=== PATIENT | male | born 1970 | race Caucasian/White ===

== ENCOUNTER 2016-06-17 08:10 | Emergency (ER) | payer OTHER ==
[~2016-06-17] VITALS: Ht 180.3 cm; Wt 85.3 kg
[~2016-06-17 08:10] MED LIST: CIPR500T89 PO; FLAG500T PO; NO HOME MEDICATIONS; PERCOCET OR
[2016-06-17] MEDS ORDERED: ONDANSETRON 4MG/2ML VIAL (J2405) IV ONE (08:30)
[2016-06-17] MEDS ORDERED: KETOROLAC 30 MG/ML VIAL (J1885) IV ONE (08:30)
[2016-06-17] MEDS ORDERED: NS 1,000 ML IV ONE (08:30)
--- NOTE | 2016-06-17 09:05 | REP ---
CT ABDOMEN AND PELVIS WITHOUT CONTRAST: 06/17/2016. Comparison: 12/21/2011. Clinical history: Renal colic. Left-sided abdominal pain. Prior history of stone disease. Findings: Our renal stone protocol was utilized. CT abdomen: The lung bases are clear. Heart is not enlarged. There is no pericardial thickening or effusion. The liver, spleen, gallbladder, pancreas, adrenal glands and stomach were unremarkable. There is no hiatal hernia. The aorta has minimal calcification distally without aneurysm No periaortic or retroperitoneal pathologic sized lymphadenopathy. The right kidney shows no stone, hydronephrosis, mass or perinephric edema. The left kidney shows a lower pole calcification about 2 mm in a pyramid. There is very minimal left hydroureter. There is a 1-2 mm calcification at the left ureteral orifice in the empty bladder. It could still be in the bladder wall. No other bladder finding. Bone windows were unremarkable. There are marginal osteophytes anteriorly. The ribs are intact. CT pelvis. The sacrum, SI joints, pelvis and hips are without acute finding. Mild distal ureteral dilatation on the left with a 1 x 2 mm stone in the bladder wall or just in the bladder. Bladder is empty and therefore difficult to evaluate. Multiple pelvic phleboliths are seen. The colon and small bowel loops in the abdomen and pelvis were unremarkable. There are no inflammatory changes about the cecum. No ventral or inguinal hernia nor pathologic sized inguinal adenopathy. Impression: 1. There is a 2 mm stone in a pyramid or lower pole calyx on the left without significant hydronephrosis. A mild hydroureter on the left without a stone in that ureter but with a 1 x 2 mm calcification within the bladder or just in the bladder wall on the left side in that empty bladder. No other significant findings. Signed by Presley Grubbs MD 06/17/2016 06:27 P
[2016-06-17 09:10] LABS: ALBUMIN 4.1 GM/DL (3.2-5.2); ALBUMIN/GLOBULIN RATIO 1.21 (1.00-1.93); ALKALINE PHOSPHATASE 63 U/L (45-117); ALT/SGPT 26 U/L (12-78); AMYLASE 40 U/L (25-115); ANION GAP 8 MEQ/L (8-16); AST/SGOT 14 U/L (15-37); BILIRUBIN,DIRECT 0.1 MG/DL (0.0-0.2); BILIRUBIN,TOTAL 0.4 MG/DL (0.2-1.0); BLOOD UREA NITROGEN 17 MG/DL (7-18); CALCIUM LEVEL 8.9 MG/DL (8.5-10.1); CARBON DIOXIDE LEVEL 28 MEQ/L (21-32); CHLORIDE LEVEL 106 MEQ/L (98-107); CREATININE FOR GFR 1.24 MG/DL (0.70-1.30); GLOMERULAR FILTRATION RATE > 60.0 (>60); GLUCOSE, FASTING 120 MG/DL (70-105); POTASSIUM SERUM 3.9 MEQ/L (3.5-5.1); SODIUM LEVEL 142 MEQ/L (136-145); TOTAL PROTEIN 7.5 GM/DL (6.4-8.2)
[2016-06-17 09:17] LABS: BASO % 0.2 % (0.0-1.0); EOS % 0.5 % (0.0-3.0); LARGE UNSTAINED CELL # 0.1 K/mm3 (0.0-0.4); LARGE UNSTAINED CELL % 1.8 % (0.0-4.0); LYMPH # 1.2 K/mm3 (1.5-4.5); LYMPH % 18.2 % (24.0-44.0); MEAN CORPUSCULAR HEMOGLOBIN 31.3 pg (27.0-33.0); MEAN CORPUSCULAR HGB CONC 33.2 g/dl (32.0-36.5); MEAN CORPUSCULAR VOLUME 94.2 fl (80.0-96.0); MONO # 0.2 K/mm3 (0.0-0.8); MONO % 3.6 % (0.0-5.0); NEUTROPHILS % 75.7 % (36.0-66.0); PLATELET COUNT, AUTOMATED 205 k/mm3 (150-450); RED CELL DISTRIBUTION WIDTH 12.1 % (11.5-14.5); WHITE BLOOD COUNT 6.6 K/mm3 (4.0-10.0)
[2016-06-17] MEDS ORDERED: HYDR-3713 PO (09:36)
[2016-06-17] MEDS ORDERED: NAPR500T PO (09:36)
[2016-06-17 09:50] VITALS: BP 148/86
== END 2016-06-17 10:02 | disposition home or self-care (01) ==
LOC: M ED 09:39
DX: N20.2 Calculus of kidney with calculus of ureter (principal); N21.0 Calculus in bladder
CPT/HCPCS: 74176; 80048; 80076; 81001; 82150; 83690; 85025; 96361; 96374; 96375; 99283; J1885; J2405

== ENCOUNTER 2019-06-15 18:53 | Emergency (ER) | payer OTHER ==
[~2019-06-15] VITALS: Ht 185.4 cm; Wt 84.2 kg
[~2019-06-15 18:53] MED LIST changes: +HYDR-3713 PO; +NAPR-837 PO; +OXYC1TAB23 OR; -PERCOCET OR
[2019-06-15 20:16] LABS: INFLUENZA A AMPLIFICATION NEGATIVE (NEGATIVE); INFLUENZA B AMPLIFICATION NEGATIVE (NEGATIVE)
[2019-06-15 20:49] LABS: BASO % 0.3 % (0.0-1.0); HEMATOCRIT 48.1 % (42.0-52.0); LYMPH % 14.6 % (24.0-44.0); MEAN CORPUSCULAR HEMOGLOBIN 31.1 pg (27.0-33.0); MEAN CORPUSCULAR HGB CONC 33.3 g/dl (32.0-36.5); MEAN CORPUSCULAR VOLUME 93.6 fl (80.0-96.0); MONO # 0.7 10^3/uL (0.0-0.8); MONO % 10.7 % (0.0-5.0); NEUTROPHILS # 4.9 10^3/uL (1.5-8.5); NEUTROPHILS % 74.1 % (36.0-66.0); PLATELET COUNT, AUTOMATED 154 10^3/uL (150-450); RED BLOOD COUNT 5.14 10^6/uL (4.30-6.10); WHITE BLOOD COUNT 6.6 10^3/uL (4.0-10.0)
[2019-06-15 20:59] LABS: APPEARANCE, URINE CLEAR (CLEAR); COLOR, URINE YELLOW (YELLOW)
[2019-06-15 21:00] LABS: BILIRUBIN, URINE AUTO NEGATIVE (NEGATIVE); GLUCOSE, URINE (UA) AUTO NEGATIVE (NEGATIVE); KETONE, URINE AUTO 1+ mg/dL (NEGATIVE); LEUKOCYTE ESTERASE, URINE AUTO NEGATIVE (NEGATIVE); NITRITE, URINE AUTO NEGATIVE (NEGATIVE); PROTEIN, URINE AUTO NEGATIVE (NEGATIVE); SPECIFIC GRAVITY URINE AUTO 1.01 (1.002-1.035); UROBILINOGEN, URINE AUTO 0.2 mg/dL (0.0-2.0)
[2019-06-15] MEDS ORDERED: ACETAMINOPHEN 325 MG TAB PO ONE (21:00)
[2019-06-15] MEDS ORDERED: ALBUTEROL SULFATE 2.5 MG/0.5 ML INH NEB SOLN NEB ONE (21:00)
[2019-06-15] MEDS ORDERED: BENZONATATE 100 MG CAP PO ONE (21:00)
[2019-06-15 21:01] LABS: BACTERIA, URINE AUTO NEG (NEGATIVE); BLOOD, URINE BLOOD NEGATIVE (NEGATIVE); RBC, URINE AUTO 1 /HPF (0-3); SQUAMOUS EPITHELIAL CELL UR AU 0 /HPF (0-6); WBC, URINE AUTO 0 /HPF (0-3)
[2019-06-15 21:08] LABS: MONO SCRN NEGATIVE (NEGATIVE)
[2019-06-15 21:11] LABS: ALBUMIN 4.2 GM/DL (3.2-5.2); ALT/SGPT 38 U/L (12-78); BILIRUBIN,DIRECT 0.1 MG/DL (0.0-0.2); BILIRUBIN,TOTAL 0.5 MG/DL (0.2-1.0); BLOOD UREA NITROGEN 15 MG/DL (7-18); CALCIUM LEVEL 9.4 MG/DL (8.5-10.1); CARBON DIOXIDE LEVEL 29 MEQ/L (21-32); CHLORIDE LEVEL 100 MEQ/L (98-107); CREATININE FOR GFR 1.17 MG/DL (0.70-1.30); GLOMERULAR FILTRATION RATE > 60.0 (>60); GLUCOSE, FASTING 101 MG/DL (70-100); POTASSIUM SERUM 4.1 MEQ/L (3.5-5.1); SODIUM LEVEL 138 MEQ/L (136-145); TOTAL PROTEIN 7.7 GM/DL (6.4-8.2)
--- NOTE | 2019-06-15 23:59 | REPVR ---
PROCEDURE INFORMATION: Exam: CT Chest Without Contrast Exam date and time: 06/15/2019 11:01 PM Age: 48 years old Clinical indication: Cough and fever; Additional info: ? Rll infiltrate, neg resp panel, fever, cough TECHNIQUE: Imaging protocol: Computed tomography of the chest without contrast. 3D rendering: MIP and/or 3D reconstructed images were created by the technologist. Radiation optimization: All CT scans at this facility use at least one of these dose optimization techniques: automated exposure control; mA and/or kV adjustment per patient size (includes targeted exams where dose is matched to clinical indication); or iterative reconstruction. COMPARISON: CR Chest, 2 view PA, Lat 06/15/2019 8:49 PM FINDINGS: Airway: Visualized airway is unremarkable. Lungs: No consolidation. No masses. Minimal subpleural ground-glass opacities in the anterior basal right lower lobe. Pleural space: Unremarkable. No pneumothorax. No pleural effusion. Heart: Unremarkable. No cardiomegaly. No pericardial effusion. Aorta: Unremarkable. No aortic aneurysm. Lymph nodes: Unremarkable. No enlarged lymph nodes. Kidneys and ureters: Subtle hypodense lesion in the midpole of the left kidney measuring 9 mm. Bones/joints: Unremarkable. No acute fracture. Soft tissues: Unremarkable. IMPRESSION: 1. Minimal subpleural ground-glass opacities in the anterior basal right lower lobe which is nonspecific. Early pneumonia cannot be excluded. 2. Subtle hypodense lesion in the midpole of the left kidney. Suspect benign-appearing cyst. No follow-up is necessary. Electronically signed by: Abhinav Garcia On 06/15/2019 23:59:05 PM
[2019-06-16] MEDS ORDERED: PROAAER10 INH (01:18)
[2019-06-16] MEDS ORDERED: TESS100C PO (01:18)
[2019-06-16] MEDS ORDERED: ONDA4TAB6 PO (01:20)
[2019-06-16 02:23] VITALS: BP 111/67
--- NOTE | 2019-06-16 03:11 | REP ---
Clinical: Flu-like symptoms . Comparison: None . Technique: PA and lateral. Findings: The mediastinum and cardiac silhouette are normal. The lung hernandez are clear and without acute consolidation, effusion, or pneumothorax. The skeletal structures are intact and normal. Impression: 1. No acute cardiopulmonary process. Electronically Signed by Chester Addison MD 06/16/2019 03:03 A
--- NOTE | 2019-06-18 18:52 | ED PDOC ---
Post-Departure Follow-Up ct chest faxed to zhane rodríguez for follow up. Ivana Simpson MD Jun 18, 2019 18:51
== END 2019-06-16 02:26 | disposition home or self-care (01) ==
LOC: M ED 18:53
DX: R50.9 Fever, unspecified (principal); R05 Cough; R06.02 Shortness of breath; M79.10 Myalgia, unspecified site; Z87.891 Personal history of nicotine dependence; K57.92 Diverticulitis of intestine, part unspecified, without perforation or abscess without bleeding
CPT/HCPCS: 71046; 71250; 80048; 80076; 81001; 85025; 86308; 87486; 87502; 87581; 87633; 87798; 87880; 99284; U0002

== ENCOUNTER → 2020-02-21 | Outpatient (CLI) | payer SELFPAY ==
[~2020-02-21] MED LIST changes: +ONDA4TAB6 PO; +PROAAER10 INH; +TESS100C PO
== END ==
LOC: M LABSMTC 13:10
PROVIDERS: ATTEND Pediatrics
DX: Z20.828 Contact with and (suspected) exposure to other viral communicable diseases (principal)

== ENCOUNTER 2020-05-27 11:29 | Emergency (ER) | payer OTHER, SELFPAY ==
[~2020-05-27] VITALS: Ht 180.3 cm; Wt 84.1 kg
[2020-05-27 11:30] VITALS: BP 128/69
--- OUTSIDE RECORDS SUMMARY | 2020-05-27 11:37 | CCD ---
Author Author [facility] Organization [facility] Address Unknown Phone Unavailable Support Name Relationship Address Phone [place] NATIONAL GUARD Next Of Kin [address] [place] [address] [place]OW[place] Next Of Kin [address] [place] [address] HIPOLITO MELVIN Next Of Kin [address] [place] [address] Re-disclosure Warning The records that you are about to access may contain information from federally-assisted alcohol or drug abuse programs. If such information is present, then the following federally mandated warning applies: This information has been disclosed to you from records protected by federal confidentiality rules (42 CFR part 2). The federal rules prohibit you from making any further disclosure of this information unless further disclosure is expressly permitted by the written consent of the person to whom it pertains or as otherwise permitted by 42 CFR part 2. A general authorization for the release of medical or other information is NOT sufficient for this purpose. The Federal rules restrict any use of the information to criminally investigate or prosecute any alcohol or drug abuse patient.The records that you are about to access may contain highly sensitive health information, the redisclosure of which is protected by Article 27-F of the [facility] Public Health law. If you continue you may have access to information: Regarding HIV / AIDS; Provided by facilities licensed or operated by the [facility] Office of Mental Health; or Provided by the [facility] Office for People With Developmental Disabilities. If such information is present, then the following [facility] mandated warning applies: This information has been disclosed to you from confidential records which are protected by state law. State law prohibits you from making any further disclosure of this information without the specific written consent of the person to whom it pertains, or as otherwise permitted by law. Any unauthorized further disclosure in violation of state law may result in a fine or chcf sentence or both. A general authorization for the release of medical or other information is NOT sufficient authorization for further disc losure. Insurance Providers Payer name Policy type / Coverage type Policy ID Covered libertarian ID Covered libertarian's relationship to jane Policy Jane Plan Information SELF PAY ONLY [id number] SP [id number] [employer] ACT[employer] DUTY [id number] SP [id number] [employer] DUTY [id number] SP [id number] ACTIVE DUTY [id number] SP [id number] U [id number] Self [id number] 600 SELF PAY UNAVAILABLE SP UNAVAILA BLE EXCELLUS BCBS P [id number] S LWE [id number] BC[employer] [place] 010/510 [id number] SP [id number] 1 Results ID Date Data Source [id number] 02/21/2020 12:00:00 AM EST [facility] Name Value Range Interpretation Code Description Data Leta rce(s) Supporting Document(s) 2018-nCoV RNA XXX EPHRAIM+probe-Imp [facility] This lab was ordered by [facility] and reported by [employer]. ID Date Data Source [id number] 06/15/2019 07:26:00 PM EDT [facility] Name Value Range Interpretation Code Description Data Leta rce(s) Supporting Document(s) 2018-NCOV RNA PNL XXX EPHRAIM+PROBE [facility] This lab was ordered by [facility] and reported by [facility]. Procedure
--- NOTE | 2020-05-27 12:29 | REP ---
INDICATION: TRAUMA/SWELLING COMPARISON: None. TECHNIQUE: Four views left ankle. FINDINGS: There is a nondisplaced fracture of the distal fibula. The ankle mortise is anatomic. There is moderate lateral soft tissue swelling. IMPRESSION: Nondisplaced fracture distal fibula. <Electronically signed by John Louise > 05/27/20 [id number]
--- OUTSIDE RECORDS SUMMARY | 2020-05-27 15:17 | CCD ---
Author Author [facility] Organization [facility] Address Unknown Phone Unavailable Support Name Relationship Address Phone [place] NATIONAL GUARD Next Of Kin [address] [place] [address] [place]OW[place] Next Of Kin [address] [place] [address] HIPOLITO MELVIN Next Of Kin [address] [place] [address] Re-disclosure Warning The records that you are [...] is protected by Article 27-F of the [facility] Public Health law. If you continue you may have access to information: Regarding HIV / AIDS; Provided by facilities licensed or operated by the [facility] Office of Mental Health; or Provided by the [facility] Office for People With Developmental Disabilities. If such information is present, then the following [facility] mandated warning applies: This information has been [...] law may result in a fine or correction sentence or both. A general authorization for the release of medical or other information is NOT sufficient authorization for further disc losure. Insurance Providers Payer name Policy type / Coverage type Policy ID Covered alliance party ID Covered alliance party's relationship to jane Policy Jane Plan Information [employer] ACT[employer] DUTY [id number] SP [id number] SELF PAY ONLY [id number] SP [id number] [employer] DUTY [id number] SP [id number] ACTIVE DUTY [id number] SP [id number] U [id number] Self [id number] 600 SELF PAY UNAVAILABLE SP UNAVAILA BLE EXCELLUS BCBS P [id number] S LWE [id number] [employer] OF [place] 010/510 [id number] SP [id number] 1 Results ID Date Data Source [id number] 02/21/2020 12:00:00 AM EST [facility] Name Value Range Interpretation Code Description Data Leta rce(s) Supporting Document(s) 2018-nCoV RNA XXX EPHRAIM+probe-Imp [facility] This lab was ordered by [facility] and reported by [employer]. ID Date Data Source [id number] 06/15/2019 07:26:00 PM EDT [facility] Name Value Range Interpretation Code Description Data Leta rce(s) Supporting Document(s) 2018-NCOV RNA PNL XXX EPHRAIM+PROBE [facility] This lab was ordered by [facility] and reported by [facility]. Procedure
== END 2020-05-27 15:43 | disposition home or self-care (01) ==
LOC: M ED 11:29
DX: S82.832A Other fracture of upper and lower end of left fibula, initial encounter for closed fracture (principal); X50.1XXA Overexertion from prolonged static or awkward postures, initial encounter; Y92.89 Other specified places as the place of occurrence of the external cause; Y93.9 Activity, unspecified; Y99.0 Civilian activity done for income or pay

== ENCOUNTER 2021-01-22 19:08 | Inpatient (IN) | payer OTHER ==
[~2021-01-22] VITALS: Ht 182.9 cm; Wt 88.3 kg
--- OUTSIDE RECORDS SUMMARY | 2021-01-22 19:16 | CCD ---
Author Author [facility] Organization [facility] Address Unknown Phone Unavailable Care Team Providers Care Bench Shear Operator Name Role Phone NO, PCP Unavailable Unavailable Joleen IBARRA Unavailable Unavailable Re-disclosure Warning The records that you are [...] is protected by Article 27-F of the [facility] Public Health law. If you continue you may have access to information: Regarding HIV / AIDS; Provided by facilities licensed or operated by the [facility] Office of Mental Health; or Provided by the [facility] Office for People With Developmental Disabilities. If such information is present, then the following [facility] mandated warning applies: This information has been [...] law may result in a fine or fci sentence or both. A general authorization for the release of medical or other information is NOT sufficient authorization for further disc losure. Allergies and Adverse Reactions Type Description Substance Reaction Status Data Source(s ) No Known Drug Allergies No Known Drug Allergies [facility] No Known Environmental Allergies No Known Environmental Al lergies [facility] No Known Food Allergies No Known Food Allergies [facility] Encounters Encounter Providers Location Date Indications Data Source(s ) Outpatient Attender: LEXY Stewartltant: PCP NO 06/11/2020 07:06:43 AM EST - 06/12/2020 11:23:00 AM [facility] Patient discharged. Outpatient Attender: LEXY Lopezant: PCP NO 06/10/2020 01:18:49 PM EST - 06/11/2020 01:47:00 PM EST [facility] Patient discharged. Medications No Information Insurance Providers Payer name Policy type / Coverage type Policy ID Covered democrat ID Covered democrat's relationship to jane Policy Jane Plan Information U [id number] Self [id number] SELF PAY ONLY [id number] SP [id number] [facility] ACTIVE DUTY [id number] SP [id number] [facility] ACTIVE DUTY [id number] SP [id number] ACTIVE DUTY [id number] SP [id number] [facility] - O/P [id number] 18 [id number] SELF PAY UNAVAILABLE SP UNAVAILA BLE EXCELLUS BCBS P [id number] S LWE [id number] BCBS [facility] 010/510 [id number] SP [id number] 1 Problems, Conditions, and Diagnoses Code Display Name Description Problem Type Effective Dates Data Source(s) X69379 Nicotine dependence, chewing tobacco, un complicated Nicotine dependence, chewing tobacco, uncomplicated Diagnosis 06/12/2020 06:15:00 AM [facility] Y998 Other external cause status Other external cause statu s Diagnosis 06/12/2020 06:15:00 AM [facility] Y9389 Activity, other specified Activity, other specified Di agnosis 06/12/2020 06:15:00 AM [facility] Y9289 Other specified places as the place of o ccurrence of the external cause Other specified places as the place of occurrence of the external cause Diagnosis 06/12/2020 06:15:00 AM [facility] [id number] Exposure to other specified factors, ini tial encounter Exposure to other specified factors, initial encounter Diagnosis 06/12/2020 06:15:00 AM [facility] [id number] Contusion of left ankle, initial encount er Contusion of left ankle, initial encounter Diagnosis 06/12/2020 06:15:00 AM [facility] [id number] Other fracture of upper and lower end of left fibula, initial encounter for closed fracture Other fracture of upper and lower end of left fibula, initial encounter for closed fracture Diagnosis 06/12/2020 06:15:00 AM [facility] [id number] Encounter for other preprocedural examin ation Encounter for other preprocedural examination Diagnosis 06/11/2020 01:00:00 PM [facility] Surgeries/Procedures No Information Results ID Date Data Source [id number] 06/07/2020 10:32:00 AM EST [facility] Name Value Range Interpretation Code Description Data Leta rce(s) Supporting Document(s) SARS coronavirus 2 RNA Not Detected [facility] This lab was ordered by [facility] and reported by [facility]. ID Date Data Source [id number] 02/21/2020 12:00:00 AM EST [facility] Name Value Range Interpretation Code Description Data Leta rce(s) Supporting Document(s) 2019-nCoV RNA XXX EPHRAIM+probe-Imp [facility] This lab was ordered by [facility] and reported by [employer] Procedure Social History No Information Vital Signs ID Date Data Source [id number] 06/18/2020 07:12:12 AM EDT [facility] Name Value Range Interpretation Code Description Data Source(s) WEIGHT RECORDED 185.00 pounds 185.00 pounds [facility] Height 71 Inches 071 Inches [facility]
[2021-01-22 20:39] LABS: BASO % 0.1 % (0.0-1.0); EOS % 0.1 % (0.0-3.0); HEMATOCRIT 47.6 % (42.0-52.0); HEMOGLOBIN 15.8 g/dl (13.5-17.5); LYMPH # 1.6 10^3/uL (1.5-5.0); LYMPH % 11.7 % (24.0-44.0); MEAN CORPUSCULAR HEMOGLOBIN 31.7 pg (27.0-33.0); MEAN CORPUSCULAR HGB CONC 33.2 g/dl (32.0-36.5); MEAN CORPUSCULAR VOLUME 95.4 fl (80.0-96.0); MONO # 1.1 10^3/uL (0.0-0.8); MONO % 8.2 % (2.0-8.0); NEUTROPHILS # 10.7 10^3/uL (1.5-8.5); NEUTROPHILS % 79.6 % (36.0-66.0); PLATELET COUNT, AUTOMATED 192 10^3/uL (150-450); RED BLOOD COUNT 4.99 10^6/uL (4.30-6.10); WHITE BLOOD COUNT 13.5 10^3/uL (4.0-10.0)
[2021-01-22 21:09] LABS: ALBUMIN 3.8 GM/DL (3.2-5.2); ALT/SGPT 24 U/L (12-78); BILIRUBIN,DIRECT 0.2 MG/DL (0.0-0.2); BILIRUBIN,TOTAL 0.7 MG/DL (0.2-1.0); BLOOD UREA NITROGEN 18 MG/DL (7-18); CALCIUM LEVEL 9.2 MG/DL (8.5-10.1); CARBON DIOXIDE LEVEL 32 MEQ/L (21-32); CHLORIDE LEVEL 103 MEQ/L (98-107); CREATININE FOR GFR 1.26 MG/DL (0.70-1.30); GLOMERULAR FILTRATION RATE > 60.0 (>60); GLUCOSE, FASTING 102 MG/DL (70-100); LIPASE 107 U/L (73-393); POTASSIUM SERUM 4.1 MEQ/L (3.5-5.1); SODIUM LEVEL 140 MEQ/L (136-145); TOTAL PROTEIN 7.3 GM/DL (6.4-8.2)
--- OUTSIDE RECORDS SUMMARY | 2021-01-22 22:55 | CCD ---
Author Author [facility] Organization [facility] Address Unknown Phone Unavailable Care Team Providers Care Occupational Health Coordinator Name Role Phone NO, PCP Unavailable Unavailable [...] is protected by Article 27-F of the [facility] Public Health law. If you continue you may have access to information: Regarding HIV / AIDS; Provided by facilities licensed or operated by the [facility] Office of Mental Health; or Provided by the [facility] Office for People With Developmental Disabilities. If such information is present, then the following [facility] mandated warning applies: This information [...] Known Drug Allergies No Known Drug Allergies [facility] No Known Environmental Allergies No Known Environmental Al lergies [facility] No Known Food Allergies No Known Food Allergies [facility] Encounters Encounter Providers Location Date Indications Data Source(s ) Outpatient Attender: LEXY Stewartltant: PCP NO 06/11/2020 07:06:43 AM EST - 06/12/2020 11:23:00 AM [facility] Patient discharged. Outpatient Attender: LEXY Lopezant: PCP NO 06/10/2020 01:18:49 PM EST - 06/11/2020 01:47:00 PM EST [facility] Patient discharged. Medications No Information Insurance Providers Payer name Policy type / Coverage type Policy ID Covered alliance party ID Covered alliance party's relationship to jane Policy Jane Plan Information U [id number] Self [id number] SELF PAY ONLY [id number] SP [id number] [facility] ACTIVE DUTY [id number] SP [id number] [facility] ACTIVE DUTY [id number] SP [id number] ACTIVE DUTY [id number] SP [id number] [facility] HUMANA - O/P [id number] 18 [id number] SELF PAY UNAVAILABLE SP UNAVAILA BLE EXCELLUS BCBS P [id number] S LWE [id number] BCBS [facility] 010/510 [id number] SP [id number] 1 Problems, Conditions, and Diagnoses Code Display Name Description Problem Type Effective Dates Data Source(s) G77446 Nicotine dependence, chewing tobacco, un complicated Nicotine dependence, chewing tobacco, uncomplicated Diagnosis 06/12/2020 06:15:00 AM [facility] Y998 Other external cause status Other external cause statu s Diagnosis 06/12/2020 06:15:00 AM [facility] Y9389 Activity, other specified Activity, other specified Di agnosis 06/12/2020 06:15:00 AM [facility] Y9289 Other specified places as the place of o ccurrence of the external cause Other specified places as the place of occurrence of the external cause Diagnosis 06/12/2020 06:15:00 AM [facility] [id number] Exposure to other specified factors, ini tial encounter Exposure to other specified factors, initial encounter Diagnosis 06/12/2020 06:15:00 AM [facility] [id number] Contusion of left ankle, initial encount er Contusion of left ankle, initial encounter Diagnosis 06/12/2020 06:15:00 AM [facility] [id number] Other fracture of upper and lower end of left fibula, initial encounter for closed fracture Other fracture of upper and lower end of left fibula, initial encounter for closed fracture Diagnosis 06/12/2020 06:15:00 AM [facility] [id number] Encounter for other preprocedural examin ation Encounter for other preprocedural examination Diagnosis 06/11/2020 01:00:00 PM [facility] Surgeries/Procedures No Information Results ID Date Data Source [id number] 06/07/2020 10:32:00 AM EST [facility] Name Value Range Interpretation Code Description Data Leta rce(s) Supporting Document(s) SARS coronavirus 2 RNA Not Detected [facility] This lab was ordered by [facility] and reported by [facility]. ID Date Data Source [id number] 02/21/2020 12:00:00 AM EST [facility] Name Value Range Interpretation Code Description Data Leta rce(s) Supporting Document(s) 2019-nCoV RNA XXX EPHRAIM+probe-Imp [facility] This lab was ordered by [facility] and reported by [employer] Procedure Social History No Information Vital Signs ID Date Data Source [id number] 06/18/2020 07:12:12 AM EDT [facility] Name Value Range Interpretation Code Description Data Source(s) WEIGHT RECORDED 185.00 pounds 185.00 pounds [facility] Height 71 Inches 071 Inches [facility]
[2021-01-22] MEDS ORDERED: NS 1,000 ML IV ONE (23:35)
[2021-01-22] MEDS ORDERED: ISOVUE-370 76% 100ML VIAL As Ordered ONE (23:42)
[2021-01-23 00:49] LABS: RSV AMPLIFICATION NEGATIVE (NEGATIVE)
--- NOTE | 2021-01-23 02:44 | REPVR ---
PROCEDURE INFORMATION: Exam: CT Abdomen And Pelvis With Contrast Exam date and time: 01/22/2021 12:51 AM Age: 50 years old Clinical indication: Other: Llq pain, fever, h/o diverticulitis TECHNIQUE: Imaging protocol: Computed tomography of the abdomen and pelvis with contrast. Radiation optimization: All CT scans at this facility use at least one of these dose optimization techniques: automated exposure control; mA and/or kV adjustment per patient size (includes targeted exams where dose is matched to clinical indication); or iterative reconstruction. Contrast material: ISOVUE 370; Contrast volume: 100 ml; Contrast route: INTRAVENOUS (IV); COMPARISON: CT ABD PELVIS W/O CONTRAST 06/17/2016 8:31 AM FINDINGS: LUNG BASES: Mild dependent atelectasis. VASCULAR: Visualized cardiac size is at the upper end of normal. No abdominoaortic aneurysm, dissection, or retroperitoneal hematoma. Mild appearing atherosclerosis. PERITONEAL : No free air. Small amount of slightly complex free fluid along the left pericolic gutter without attenuation of 27 Hounsfield units could be mildly hemorrhagic fluid or infected fluid. No wall enhancing abscess collection is seen. GI: No hiatal hernia. The stomach contains some fluid and gas. The stomach is not sufficiently distended to evaluate wall thickening or for complete diagnostic evaluation by this exam. Mildly distended fluid containing small bowel loops up to 2.7 cm are noted. No focal point of transition is seen. This may be secondary to peristalsis or ileus. Small nonspecific mesenteric lymph nodes are noted. Scattered fecal material and gas within portions of the colon and rectum. The appendix does not appear inflamed. There is heterogeneous focal wall thickening over an approximate 5.7 cm segment at the junction of the distal descending and sigmoid colon with surrounding mesenteric inflammatory change, fluid and fascial thickening. There is a background of diverticulosis, including an inflamed appearing diverticulum posteriorly containing bubbles of gas and surrounded by fluid, findings most consistent with acute diverticulitis. Follow-up with colonoscopy is advised, once inflammation subsides, to exclude any possibility of underlying colonic lesion. No evidence of perforation/free air or drainable abscess is seen. HEPATOBILIARY, PANCREAS, SPLEEN: Hepatic length is 17.4 cm. Attenuation of the liver is consistent with fatty infiltration. There is slight heterogeneity of hepatic parenchyma. No calcified gallstones or biliary dilation. No pancreatic inflammation. Spleen not enlarged. ADRENALS, KIDNEYS, BLADDER, RETROPERITONEAL: Adrenals within normal limits. No hydronephrosis. Symmetric renal enhancement. No perinephric stranding or fluid. No perivesical stranding. Mild prostate enlargement impressing along the base of the urinary bladder. Clinical correlation and follow-up is advised. Trace hydroceles are noted which could be correlated clinically for significance. Small nonspecific retroperitoneal lymph nodes. MUSCULOSKELETAL: Mild degenerative changes of the spine. IMPRESSION: Findings are consistent with moderately severe but uncomplicated acute diverticulitis at the junction of the distal descending and sigmoid colon. Gastrointestinal findings and recommendations discussed above. Other incidental and nonemergent findings discussed above. Electronically signed by: Jamaal Miller On 01/23/2021 02:44:33 AM
[2021-01-23] MEDS ORDERED: metroNIDAZOLE 500 MG in IV 1 EA IV ONE (03:10)
[2021-01-23] MEDS ORDERED: CIPROFLOXACIN 400 MG in IV 1 EA IV ONE (03:10)
[2021-01-23] MEDS ORDERED: ACETAMINOPHEN TAB 650MG DOSE (2X325MG) PO PRN (04:00)
[2021-01-23] MEDS ORDERED: MAALOX 30 ML SUSP *UDC PO PRN (04:00)
[2021-01-23] MEDS ORDERED: MOM 30ML SUSPENSION UDC PO PRN (04:00)
[2021-01-23] MEDS ORDERED: D31000TA2 PO (04:27)
[2021-01-23] MEDS ORDERED: HOME MED LIST COMPLETE! XX SCH (04:30)
[2021-01-23] MEDS: NS 1,000 ML IV SCH ×2 (05:11→14:30)
--- OUTSIDE RECORDS SUMMARY | 2021-01-23 05:18 | CCD ---
Author Author [facility] Organization [facility] Address Unknown Phone Unavailable Care Team Providers Care Computer Applications Instructor Name Role Phone NO, PCP Unavailable Unavailable [...] is protected by Article 27-F of the [place] Public Health law. If you continue you may have access to information: Regarding HIV / AIDS; Provided by facilities licensed or operated by the [place] Office of Mental Health; or Provided by the [place] Office for People With Developmental Disabilities. If such information is present, then the following [place] mandated warning applies: This information has been [...] law may result in a fine or long term sentence or both. A general authorization for the release of medical or other information is NOT sufficient authorization for further disc losure. Allergies and Adverse Reactions Type Description Substance Reaction Status Data Source(s ) No Known Drug Allergies No Known Drug Allergies [facility] No Known Environmental Allergies No Known Environmental Al lergies [facility] No Known Food Allergies No Known Food Allergies [facility] Encounters Encounter Providers Location Date Indications Data Source(s ) Outpatient Attender: LEXY Stewartltant: PCP NO 06/11/2020 07:06:43 AM EST - 06/12/2020 11:23:00 AM [facility] Patient discharged. Outpatient Attender: LEXY Lopezant: PCP NO 06/10/2020 01:18:49 PM EST - 06/11/2020 01:47:[address] [facility] Patient discharged. Medications No Information Insurance Providers Payer name Policy type / Coverage type Policy ID Covered green party ID Covered green party's relationship to jane Policy Jane Plan Information U [id number] Self [id number] SELF PAY ONLY [id number] SP [id number] [facility] ACTIVE DUTY [id number] SP [id number] [facility] [id number] SP [id number] ACTIVE DUTY [id number] SP [id number] [facility] HUMA[employer] - O/P [id number] 18 [id number] SELF PAY UNAVAILABLE SP UNAVAILA BLE [employer] BCBS P [id number] S LWE [id number] BCBS [facility] [id number] SP [id number] Problems, Conditions, and Diagnoses Code Display Name Description Problem Type Effective Dates Data Source(s) M02919 Nicotine dependence, chewing tobacco, un complicated Nicotine dependence, chewing tobacco, uncomplicated Diagnosis 06/12/2020 06:15:00 AM [facility] Y998 Other external cause status Other external cause statu s Diagnosis 06/12/2020 06:15:00 AM [facility] Y9389 Activity, other specified Activity, other specified Di agnosis 06/12/2020 06:15:00 AM [facility] Y9289 Other specified places as the place of o ccurrence of the external cause Other specified places as the place of occurrence of the external cause Diagnosis 06/12/2020 06:15:00 AM [facility] [id number] Exposure to other specified factors, ini tial encounter Exposure to other specified factors, initial encounter Diagnosis 06/12/2020 06:15:00 AM [facility] [id number] Contusion of left ankle, initial encount er Contusion of left ankle, initial encounter Diagnosis 06/12/2020 06:15:00 AM [facility] [id number] Other fracture of upper and lower end of left fibula, initial encounter for closed fracture Other fracture of upper and lower end of left fibula, initial encounter for closed fracture Diagnosis 06/12/2020 06:15:00 AM [facility] [id number] Encounter for other preprocedural examin ation Encounter for other preprocedural examination Diagnosis 06/11/2020 01:00:00 PM [facility] Surgeries/Procedures No Information Results ID Date Data Source [id number] 06/07/2020 10:32:00 AM EST [facility] Name Value Range Interpretation Code Description Data Leta rce(s) Supporting Document(s) SARS coronavirus 2 RNA Not Detected [facility] [place] This lab was ordered by [facility] and reported by [facility]. ID Date Data Source [id number] 02/21/2020 12:00:00 AM EST [facility] Name Value Range Interpretation Code Description Data Leta rce(s) Supporting Document(s) 2019-nCoV RNA XXX EPHRAIM+probe-Imp [facility] This lab was ordered by [facility] and reported by [facility] Procedure Social History No Information Vital Signs ID Date Data Source [id number] 06/18/2020 07:12:12 AM EDT [facility] Name Value Range Interpretation Code Description Data Source(s) WEIGHT RECORDED 185.00 pounds 185.00 pounds [facility] Height 71 Inches 071 Inches [facility]
--- NOTE | 2021-01-23 06:14 | HPEPDOC ---
General Date of Admission Jan 23, 2021 at 05:12 Date of Service: Jan 23, 2021 Attending Physician: RENUKA NGO MD Chief Complaint The patient is a 50-year-old male admitted with a reason for visit of Diverticulitis. History of Present Illness History of present illness: Mr. Stevens is a pleasant 50 year old male who presented to the emergency department for left lower quadrant abdominal pain of 12 hours duration. He states that he woke up on the morning of 01/22/21 with 1/10 left lower quadrant abdominal pain. He proceeded to go to work on [employer] and noticed that the pain progressively got worse. He decided to present to the ED around 7 pm when the pain became a 3/10. He describe the pain as "sore" and nonradiating. It is exacerbated by tightening his abdominal muscles and made better by lying still and not exerting himself. He admits to feeling hot and cold on and off while at work but did not take his temperature. He denies blood in stool or urine and states that his last colonoscopy was in 2011 after an episode of acute diverticulitis. While in the ED he was found to be febrile (101.2) and have an elevated WBC count of 13.5. CT abdomen/pelvis exhibited moderately severe but uncomplicated acute diverticulitis. He was given one dose of metronidazole and ciprofloxacin as well as 1L NS. Past medical history: Diverticulitis 2012 Vitamin D deficiency Past surgical history: Left ankle surgery 06/2020 Social history: Patient denies tobacco, alcohol, or ilicit drug use Family history: noncontributory Allergies: No known drug allergies Imaging: CT abdomen/pelvis 01/22/21: IMPRESSION: Findings are consistent with moderately severe but uncomplicated acute diverticulitis at the junction of the distal descending and sigmoid colon. Assessment: Mr. Stevens is a 50 year old male with past medical history of diverticulitis and vitamin D deficiency who presented to the ED for left lower quadrant abdominal pain. He was found to have moderately severe uncomplicated acute diverticulitis and was admitted for treatment. Plan: Acute Diverticulitis -12 hours in duration, patient rated pain as 3/10 at worst -CT abdomen/pelvis results as above -WBC 13.5, will continue to monitor -Lactic acid wnl -Started metronidazole 500 TID and Ciprofloxacin 400 BID -Started maintenance fluids at a rate of 120ml/hr x 2 bags -Will keep patient NPO for bowel rest. Advance diet as tolerated -Patient will need an outpatient colonoscopy in 8 weeks after inflammation has subsided Vitamin D deficiency -patient can follow up outpatient DVT prophylaxis: -continue heparin Disposition: patient is stable. Advance diet as tolerated, continue IV fluids and antibiotics. Home Medications Scheduled Cholecalciferol (Vitamin D3) (Vitamin D3) 1,000 Unit Tablet, 1,000 UNITS PO DAILY, (Reported) Allergies Coded Allergies: No Known Allergies (Unverified , 06/15/19) A-FIB/CHADSVASC A-FIB History Current/History of A-Fib/PAF?: No Current PO Anticoag Therapy: No Vital Signs Vital Signs Date Time Temp Pulse Resp B/P (MAP) Pulse Ox O2 Delivery O2 Flow Rate FiO2 01/23/21 01:58 98.5 64 14 111/72 (85) 99 Room Air Laboratory Data Labs 24H Laboratory Tests 2 01/22/21 20:24: Immature Granulocyte % (Auto) 0.3, Neutrophils (%) (Auto) 79.6H, Lymphocytes (%) (Auto) 11.7L, Monocytes (%) (Auto) 8.2H, Eosinophils (%) (Auto) 0.1, Basophils (%) (Auto) 0.1, Neutrophils # (Auto) 10.7H, Lymphocytes # (Auto) 1.6, Monocytes # (Auto) 1.1H, Eosinophils # (Auto) 0.0, Basophils # (Auto) 0.0, Nucleated Red Blood Cells % (auto) 0.0, Anion Gap 5L, Glomerular Filtration Rate > 60.0, Calcium Level 9.2, Total Bilirubin 0.7, Direct Bilirubin 0.2, Aspartate Amino Transf (AST/SGOT) 8, Alanine Aminotransferase (ALT/SGPT) 24, Alkaline Phosphatase 74, Total Protein 7.3, Albumin 3.8, Albumin/Globulin Ratio 1.1, Lip ase 107 01/22/21 23:42: Lactic Acid Level 0.8, Coronavirus (COVID-19)(PCR) NEGATIVE, Influenza Type A (RT-PCR) NEGATIVE, Influenza Type B (RT-PCR) NEGATIVE, Respiratory Syncytial Virus (PCR) NEGATIVE CBC/BMP Laboratory Tests 01/22/21 20:24 Plan / VTE VTE Prophylaxis Ordered?: Yes GME ATTESTATION GME ATTESTATION My faculty preceptor for this patient encounter was physically present during the encounter and was fully available. All aspects of the patient interview, examination, medical decision making process, and medical care plan development were reviewed and approved by the faculty preceptor. The faculty preceptor is aware and concurs with the plan as stated in the body of this note and will attest to such by his/her cosignature. ATTENDING NOTE I, Lilo Ngo, have independently examined this patient and performed my own physical exam, as well as reviewed the documentation and edited where necessary. I have discussed in detail with the resident / student the findings and plan of treatment as documented by the resident / student and edited their note. I agree with their findings and treatment plan and have edited their documentation. I will continue to follow the patient during this hospital stay. OMAR PORTER DO Jan 23, 2021 06:14 RENUKA NGO MD Jan 23, 2021 18:42
[2021-01-23] MEDS: DOCUSATE SODIUM 100MG CAPSULE PO SCH ×2 (08:55→20:28)
[2021-01-23] MEDS: HEPARIN SOD (PORCINE) 5000UNITS/ML 1ML VIAL/SYRINGE SC SCH ×2 (08:56→20:29)
[2021-01-23 11:25] LABS: ALBUMIN 3.1 GM/DL (3.2-5.2); ALT/SGPT 19 U/L (12-78); BILIRUBIN,TOTAL 0.8 MG/DL (0.2-1.0); BLOOD UREA NITROGEN 14 MG/DL (7-18); CALCIUM LEVEL 8.7 MG/DL (8.5-10.1); CARBON DIOXIDE LEVEL 27 MEQ/L (21-32); CHLORIDE LEVEL 108 MEQ/L (98-107); GLOMERULAR FILTRATION RATE > 60.0 (>60); GLUCOSE, FASTING 89 MG/DL (70-100); POTASSIUM SERUM 4.4 MEQ/L (3.5-5.1); SODIUM LEVEL 140 MEQ/L (136-145); TOTAL PROTEIN 6.2 GM/DL (6.4-8.2)
[2021-01-23 12:50] VITALS: BP 108/56
[2021-01-23 14:00] VITALS: BP 111/56
[2021-01-23] MEDS: metroNIDAZOLE 500 MG in IV 1 EA IV SCH ×2 (14:31→21:18)
[2021-01-23] MEDS: CIPROFLOXACIN 400 MG in IV 1 EA IV SCH (15:51)
[2021-01-23 22:02] VITALS: BP 111/58
[2021-01-24] MEDS: CIPROFLOXACIN 400 MG in IV 1 EA IV SCH (04:17)
[2021-01-24] MEDS: metroNIDAZOLE 500 MG in IV 1 EA IV SCH ×2 (05:21→13:56)
[2021-01-24 06:31] VITALS: BP 109/60
[2021-01-24 06:45] LABS: BASO % 0.3 % (0.0-1.0); EOS # 0.1 10^3/uL (0.0-0.5); EOS % 0.8 % (0.0-3.0); HEMATOCRIT 41.2 % (42.0-52.0); HEMOGLOBIN 13.7 g/dl (13.5-17.5); LYMPH # 1.3 10^3/uL (1.5-5.0); LYMPH % 19.7 % (24.0-44.0); MEAN CORPUSCULAR HEMOGLOBIN 31.9 pg (27.0-33.0); MEAN CORPUSCULAR HGB CONC 33.3 g/dl (32.0-36.5); MEAN CORPUSCULAR VOLUME 95.8 fl (80.0-96.0); MONO # 0.5 10^3/uL (0.0-0.8); MONO % 8.2 % (2.0-8.0); NEUTROPHILS # 4.6 10^3/uL (1.5-8.5); NEUTROPHILS % 70.7 % (36.0-66.0); PLATELET COUNT, AUTOMATED 152 10^3/uL (150-450); WHITE BLOOD COUNT 6.5 10^3/uL (4.0-10.0)
[2021-01-24] MEDS ORDERED: NS 1,000 ML IV SCH (07:40)
[2021-01-24] MEDS ORDERED: INFLUENZA QUADRIVALENT PF VACCINE 0.5ML SYRINGE IM ONE (09:00)
[2021-01-24] MEDS: DOCUSATE SODIUM 100MG CAPSULE PO SCH (09:16)
[2021-01-24] MEDS: HEPARIN SOD (PORCINE) 5000UNITS/ML 1ML VIAL/SYRINGE SC SCH (09:17)
[2021-01-24] MEDS ORDERED: METR-265 PO (09:50)
[2021-01-24] MEDS ORDERED: CIPR-249 PO (09:50)
--- NOTE | 2021-01-24 20:44 | DS.PDOC ---
Discharge Summary General Date of Admission Jan 23, 2021 at 05:12 Date of Discharge 01/24/21 Attending Physician: Susan Lewis MD Discharge Summary HPI: Mr. Stevens is a pleasant 50 year old male who presented to the emergency department for left lower quadrant abdominal pain of 12 hours duration. He states that he woke up on the morning of 01/22/21 with 1/10 left lower quadrant abdominal pain. He proceeded to go to work on [employer] and noticed that the pain progressively got worse. He decided to present to the ED around 7 pm when the pain became a 3/10. He describe the pain as "sore" and nonradiating. It is exacerbated by tightening his abdominal muscles and made better by lying still and not exerting himself. He admits to feeling hot and cold on and off while at work but did not take his temperature. He denies blood in stool or urine and states that his last colonoscopy was in 2011 after an episode of acute diverticulitis. While in the ED he was found to be febrile (101.2) and have an elevated WBC count of 13.5. CT abdomen/pelvis exhibited moderately severe but uncomplicated acute diverticulitis. He was given one dose of metronidazole and ciprofloxacin as well as 1L NS. HOSPITAL COURSE: See plan below Past medical history: Diverticulitis 2011 Vitamin D deficiency Past surgical history: Left ankle surgery 06/2020 Social history: Patient denies tobacco, alcohol, or ilicit drug use Family history: noncontributory Allergies: No known drug allergies DISCHARGE MEDS: Please see below PHYSICAL EXAMINATION: VS: Please see below CONSTITUTIONAL: No acute distress, resting comfortably, AAO x 3 EYES: PERRLA, EOM intact HENT, MOUTH: Normocephalic, atraumatic, moist mucous membranes NECK: SUPPLE, no JVD, no lymphadenopathy, no carotid bruit CV: Regular rate and rhythm, S1S2 normal, no murmurs/rubs/gallops RESPIRATORY: Clear to auscultation bilaterally, no rales/rhonchi/wheezes GI: BS positive in 4 quadrants, soft, nontender, nondistended, no rebound or guarding, no organomegaly : Deferred MUSCULOSKELETAL: Normal ROM. No cyanosis, clubbing, swelling, joint deformity, extremity edema INTEGUMENTARY: Intact, no rashes, no lesions, no erythema NEUROLOGIC: Cranial Nerves II-XII are intact, no focal deficits PSYCHIATRIC: Mood and affect are normal Labs: Please see below Imaging: CT abdomen/pelvis 01/22/21: IMPRESSION: Findings are consistent with moderately severe but uncomplicated acute diverticulitis at the junction of the distal descending and sigmoid colon. Assessment: Mr. Stevens is a 50 year old male with past medical history of diverticulitis and vitamin D deficiency who presented to the ED for left lower quadrant abdominal pain. He was found to have moderately severe uncomplicated acute diverticulitis and was admitted for treatment. Plan: Acute Diverticulitis -Tolerating advanced diet, no abdominal pain, n/v/d. -Transitioned to PO cipro, flagyl and he should c/w these meds as o/p -Advised to f/u with PCP within 1 week after discharge -Report n/v, abdominal pain immediately to medical provider. -He will need an outpatient colonoscopy in 6-8 weeks after inflammation has subsided. Can be referred to surgery or GI from his PCP. Vitamin D deficiency -patient can follow up outpatient Disposition: D/c home in improved condition today TIME SPENT ON DISCHARGE: 35 minutes. Vital Signs/I&Os Vital Signs Date Time Temp Pulse Resp B/P (MAP) Pulse Ox O2 Delivery O2 Flow Rate FiO2 01/24/21 06:31 97.9 53 18 109/60 (76) 96 Room Air I&O- Last 24 Hours up to 6 AM 01/24/21 06:00 Intake Total 4760 ml Output Total 0 ml Balance 4760 ml Laboratory Data Labs 24H Laboratory Tests 2 01/24/21 06:12: Immature Granulocyte % (Auto) 0.3, Neutrophils (%) (Auto) 70.7H, Lymphocytes (%) (Auto) 19.7L, Monocytes (%) (Auto) 8.2H, Eosinophils (%) (Auto) 0.8, Basophils (%) (Auto) 0.3, Neutrophils # (Auto) 4.6, Lymphocytes # (Auto) 1.3L, Monocytes # (Auto) 0.5, Eosinophils # (Auto) 0.1, Basophils # (Auto) 0.0, Nucleated Red Blood Cells % (auto) 0.0 CBC/BMP Laboratory Tests 01/24/21 06:12 Discharge Medications Scheduled Cholecalciferol (Vitamin D3) (Vitamin D3) 1,000 Unit Tablet, 1,000 UNITS PO DAILY, (Reported) Ciprofloxacin HCl (Cipro) 500 Mg Tablet, 500 MG PO BID Metronidazole (Metronidazole) 500 Mg Tablet, 500 MG PO TID Allergies Coded Allergies: No Known Allergies (Unverified , 06/15/19) Susan Lewis MD Jan 24, 2021 20:43
--- NOTE | 2021-01-25 08:09 | ED PDOC ---
Post-Departure Follow-Up radiology report faxed to [facility] Valentina Bullard MD Jan 25, 2021 08:09
== END 2021-01-24 15:20 | disposition home or self-care (01) | DRG 392 ==
LOC: M ED 19:08 → M ED INP 01-23 05:12 → ENRESERV 01-23 10:20 → M MS5PR 01-23 12:50
PROVIDERS: ADMIT Family Medicine; ATTEND Internal Medicine
DX: K57.32 Diverticulitis of large intestine without perforation or abscess without bleeding (principal); E55.9 Vitamin D deficiency, unspecified; Z20.822 Contact with and (suspected) exposure to COVID-19

== ENCOUNTER 2022-05-20 09:25 | Day surgery (SDC) | payer OTHER ==
[~2022-05-20] VITALS: Ht 182.9 cm; Wt 84.4 kg
[~2022-05-20 09:25] MED LIST changes: +CIPR-249 PO; +METR-265 PO; +NS 1,000 ML IV ONE; +VITA100093 PO
[2022-05-20] MEDS ORDERED: LIDOCAINE 2% 100MG/5ML SDV (FOR ANES.) As Ordered ONE (10:59)
[2022-05-20] MEDS ORDERED: propofoL 200 MG/20 ML VIAL As Ordered ONE ×2 (10:59→11:05)
[2022-05-20 11:56] VITALS: BP 114/73
== END 2022-05-20 12:08 | disposition home or self-care (01) ==
LOC: M OPP 09:25
PROVIDERS: ATTEND Internal Medicine Gastroenterology
DX: Z12.11 Encounter for screening for malignant neoplasm of colon (principal); C18.9 Malignant neoplasm of colon, unspecified; K57.30 Diverticulosis of large intestine without perforation or abscess without bleeding; K64.0 First degree hemorrhoids; K56.699 Other intestinal obstruction unspecified as to partial versus complete obstruction; Z53.8 Procedure and treatment not carried out for other reasons

== ENCOUNTER → 2022-05-29 | Outpatient (CLI) | payer OTHER ==
[~2022-05-29] MED LIST changes: -NS 1,000 ML IV ONE
== END ==
LOC: M LAB 15:08
PROVIDERS: ATTEND Surgery
DX: C18.7 Malignant neoplasm of sigmoid colon (principal)

== ENCOUNTER → 2022-06-01 | Outpatient (CLI) | payer OTHER ==
[~2022-06-01] MED LIST changes: +GASTROGRAFIN SOLUTION 30ML As Ordered ONE; +ISOVUE-370 76% 100ML VIAL As Ordered ONE
== END ==
LOC: M RAD 12:04
PROVIDERS: ATTEND Surgery
DX: C18.7 Malignant neoplasm of sigmoid colon (principal)

== ENCOUNTER 2022-06-08 06:03 | Inpatient (IN) | payer OTHER ==
[2022-06-08] VITALS (9 sets, daily range): BP systolic 108–135; BP diastolic 73–84
[~2022-06-08] VITALS: Ht 182.9 cm; Wt 85.5 kg
[~2022-06-08 06:03] MED LIST changes: -GASTROGRAFIN SOLUTION 30ML As Ordered ONE; -ISOVUE-370 76% 100ML VIAL As Ordered ONE
[2022-06-08] MEDS ORDERED: ERTAPENEM SODIUM 1 GM in NS MINI-BAG PLUS 50 ML IV ONE (06:05)
[2022-06-08] MEDS ORDERED: LR 1,000 ML IV SCH ×2 (06:10→10:30)
[2022-06-08] MEDS ORDERED: HOME MED LIST COMPLETE! XX SCH (06:35)
[2022-06-08] MEDS ORDERED: fentaNYL 250 MCG/5 ML INJECTION As Ordered ONE (06:37)
[2022-06-08] MEDS ORDERED: MIDAZOLAM INJ 2MG/2ML VIAL As Ordered ONE (06:38)
[2022-06-08] MEDS ORDERED: propofoL 200 MG/20 ML VIAL As Ordered ONE (06:39)
[2022-06-08] MEDS ORDERED: LIDOCAINE 2% 100MG/5ML SDV (FOR ANES.) As Ordered ONE (06:39)
[2022-06-08] MEDS ORDERED: ONDANSETRON 4MG 2ML VIAL As Ordered ONE (06:39)
[2022-06-08] MEDS ORDERED: ROCURONIUM BROMIDE 50MG/5ML VIAL As Ordered ONE ×2 (06:39→08:07)
[2022-06-08] MEDS ORDERED: GLYCOPYRROLATE INJ 0.2 MG/ML 2 ML VIAL As Ordered ONE (06:44)
[2022-06-08] MEDS ORDERED: BUPIVACAINE HCL 0.5% 30ML VIAL As Ordered ONE (07:12)
[2022-06-08] MEDS ORDERED: GLUCAGON INJ 1MG VIAL As Ordered ONE (07:12)
[2022-06-08] MEDS ORDERED: BUPIVACAINE/EPIN 0.25% 30ML VIAL As Ordered ONE (07:12)
[2022-06-08] MEDS ORDERED: BUPIVACAINE LIPOSOME/PF 1.3% 20ML VIAL (13.3MG/ML)(EXPAREL) As Ordered ONE (07:12)
[2022-06-08] MEDS ORDERED: BUPIVACAINE HCL 0.25% 30ML VIAL As Ordered ONE (07:13)
[2022-06-08] MEDS ORDERED: ACETAMINOPHEN 1000MG 100ML IV BAG As Ordered ONE (07:54)
[2022-06-08] MEDS ORDERED: HYDROmorphone HCL 2MG/ML 1ML VIAL As Ordered ONE (08:39)
[2022-06-08] MEDS ORDERED: SUGAMMADEX SODIUM 500 MG/5 ML VIAL (BRIDION) As Ordered ONE (09:53)
[2022-06-08] MEDS ORDERED: ONDANSETRON 4MG 2ML VIAL IV PRN ×2 (10:25→10:30)
[2022-06-08] MEDS ORDERED: MORPHINE 2 MG/ML 1ML VIAL IV PRN ×2 (10:25)
[2022-06-08] MEDS ORDERED: HYDROMORPHONE HCL 0.5 MG/ 0.5 ML SYRINGE IV PRN (10:30)
[2022-06-08] MEDS ORDERED: fentaNYL 100 MCG/2 ML INJECTION IV PRN (10:30)
[2022-06-08] MEDS ORDERED: oxyCODONE 5MG TAB PO PRN (10:30)
[2022-06-08] MEDS: NS 1,000 ML IV SCH ×2 (12:02→20:10)
[2022-06-08] MEDS: PANTOPRAZOLE 40MG VIAL IV SCH (12:35)
[2022-06-08] MEDS: KETOROLAC 30 MG/ML 1ML VIAL IV SCH ×3 (12:35→23:36)
[2022-06-08] MEDS: ALVIMOPAN 12 MG CAPSULE (ENTEREG) PO SCH ×2 (13:08→20:10)
[2022-06-09 02:00] VITALS: BP 111/66
[2022-06-09 06:00] VITALS: BP 113/66
[2022-06-09 06:22] LABS: HEMATOCRIT 39.4 % (42.0-52.0); HEMOGLOBIN 13.2 g/dl (13.5-17.5); MEAN CORPUSCULAR HEMOGLOBIN 31.4 pg (27.0-33.0); MEAN CORPUSCULAR HGB CONC 33.5 g/dl (32.0-36.5); MEAN CORPUSCULAR VOLUME 93.6 fl (80.0-96.0); PLATELET COUNT, AUTOMATED 153 10^3/uL (150-450); RED BLOOD COUNT 4.21 10^6/uL (4.30-6.10); WHITE BLOOD COUNT 8.4 10^3/uL (4.0-10.0)
[2022-06-09] MEDS: KETOROLAC 30 MG/ML 1ML VIAL IV SCH ×4 (06:33→23:36)
[2022-06-09] MEDS: NS 1,000 ML IV SCH ×2 (06:34→11:14)
[2022-06-09 06:55] LABS: BLOOD UREA NITROGEN 20 MG/DL (9-23); CALCIUM LEVEL 7.9 MG/DL (8.5-10.1); CARBON DIOXIDE LEVEL 27 MMOL/L (20-31); CHLORIDE LEVEL 105 MMOL/L (98-107); CREATININE FOR GFR 1.07 MG/DL (0.70-1.30); GLOMERULAR FILTRATION RATE > 60.0 (>56); GLUCOSE, FASTING 92 MG/DL (60-100); POTASSIUM SERUM 4.1 MMOL/L (3.5-5.1); SODIUM LEVEL 139 MMOL/L (136-145)
[2022-06-09] MEDS ORDERED: ERTAPENEM SODIUM 1 GM in NS MINI-BAG PLUS 50 ML IV ONE (08:00)
[2022-06-09] MEDS: ALVIMOPAN 12 MG CAPSULE (ENTEREG) PO SCH ×2 (08:18→20:08)
[2022-06-09] MEDS: PANTOPRAZOLE 40MG VIAL IV SCH (08:18)
[2022-06-09 14:42] VITALS: BP 117/68
[2022-06-09 20:13] VITALS: BP 123/73
[2022-06-10] MEDS: KETOROLAC 30 MG/ML 1ML VIAL IV SCH ×2 (05:43→10:07)
[2022-06-10 05:45] VITALS: BP 123/74
[2022-06-10 06:28] LABS: HEMOGLOBIN 14.1 g/dl (13.5-17.5); MEAN CORPUSCULAR HEMOGLOBIN 31.1 pg (27.0-33.0); MEAN CORPUSCULAR HGB CONC 32.8 g/dl (32.0-36.5); MEAN CORPUSCULAR VOLUME 94.7 fl (80.0-96.0); PLATELET COUNT, AUTOMATED 160 10^3/uL (150-450); RED BLOOD COUNT 4.54 10^6/uL (4.30-6.10); WHITE BLOOD COUNT 8.4 10^3/uL (4.0-10.0)
[2022-06-10 07:01] LABS: BLOOD UREA NITROGEN 13 MG/DL (9-23); CALCIUM LEVEL 8.1 MG/DL (8.5-10.1); CARBON DIOXIDE LEVEL 29 MMOL/L (20-31); CHLORIDE LEVEL 106 MMOL/L (98-107); CREATININE FOR GFR 1.09 MG/DL (0.70-1.30); GLOMERULAR FILTRATION RATE > 60.0 (>56); GLUCOSE, FASTING 92 MG/DL (60-100); SODIUM LEVEL 141 MMOL/L (136-145)
[2022-06-10 08:00] VITALS: BP 124/72
[2022-06-10] MEDS: PANTOPRAZOLE 40MG VIAL IV SCH (09:56)
[2022-06-10] MEDS: ALVIMOPAN 12 MG CAPSULE (ENTEREG) PO SCH (09:56)
[2022-06-10 14:00] VITALS: BP 133/80
== END 2022-06-10 14:55 | disposition home or self-care (01) | DRG 331 ==
LOC: M OR 06:03 → M MS5PR 11:35
PROVIDERS: ADMIT Surgery; ATTEND Surgery
PROC: 07BC3ZX Excision of Pelvis Lymphatic, Percutaneous Approach, Diagnostic (ICD-10-PCS; 2022-06-08)
PROC: 0DTN4ZZ Resection of Sigmoid Colon, Percutaneous Endoscopic Approach (ICD-10-PCS; principal; 2022-06-08 07:30)
DX: C18.7 Malignant neoplasm of sigmoid colon (principal); K57.30 Diverticulosis of large intestine without perforation or abscess without bleeding; E55.9 Vitamin D deficiency, unspecified

== ENCOUNTER → 2022-07-03 | Outpatient (CLI) | payer OTHER | LOC: M LABSMTC 08:15 | PROVIDERS: ATTEND Internal Medicine Hematology & Oncology | DX: Z11.52 Encounter for screening for COVID-19 (principal) ==

== ENCOUNTER → 2022-07-06 | Outpatient (CLI) | payer OTHER ==
[~2022-07-06] MED LIST changes: +LIDOCAINE 1% MDV 20ML VIAL As Ordered ONE; +MIDAZOLAM INJ 2MG/2ML VIAL As Ordered ONE; +NS 1,000 ML IV SCH; +ceFAZolin 2 GM/D5W 50 ML IV BAG As Ordered ONE; +ceFAZolin SOD 2 GM in IV 1 EA IV ONE; +diphenhydrAMINE 50MG/ML VIAL As Ordered ONE; +fentaNYL 100 MCG/2 ML INJECTION As Ordered ONE
[2022-07-06 15:00] VITALS: BP 110/64
== END ==
LOC: M IRPRO 10:36
PROVIDERS: ATTEND Internal Medicine Hematology & Oncology
DX: C18.7 Malignant neoplasm of sigmoid colon (principal)
CPT/HCPCS: 36561; 99152; 99153; C1769; C1788; C1894; J0690; J2250; J3010

== ENCOUNTER → 2022-07-27 | Outpatient (CLI) | payer OTHER ==
[~2022-07-27] MED LIST changes: -LIDOCAINE 1% MDV 20ML VIAL As Ordered ONE; -MIDAZOLAM INJ 2MG/2ML VIAL As Ordered ONE; -NS 1,000 ML IV SCH; -ceFAZolin 2 GM/D5W 50 ML IV BAG As Ordered ONE; -ceFAZolin SOD 2 GM in IV 1 EA IV ONE; -diphenhydrAMINE 50MG/ML VIAL As Ordered ONE; -fentaNYL 100 MCG/2 ML INJECTION As Ordered ONE
== END ==
LOC: M PLARAD 08:31
PROVIDERS: ATTEND Internal Medicine Hematology & Oncology
DX: C18.7 Malignant neoplasm of sigmoid colon (principal)
CPT/HCPCS: 78815; A9552

== ENCOUNTER → 2022-07-28 | Outpatient (POV) | payer OTHER ==
[~2022-07-28] VITALS: Ht 182.9 cm; Wt 84.0 kg
[2022-07-28 15:30] VITALS: BP 154/69
== END ==
LOC: M IRPOV 15:03
PROVIDERS: ATTEND Radiology Diagnostic Radiology
DX: Z45.2 Encounter for adjustment and management of vascular access device (principal)

== ENCOUNTER → 2022-11-30 | Outpatient (CLI) | payer OTHER ==
[~2022-11-30] MED LIST changes: +OLAN1TAB16 PO; +PROC10TA5 PO
== END ==
LOC: M PLARAD 08:51
PROVIDERS: ATTEND Internal Medicine Hematology & Oncology
DX: C18.8 Malignant neoplasm of overlapping sites of colon (principal)
CPT/HCPCS: 78815; A9552

== ENCOUNTER 2023-03-09 06:10 | Day surgery (SDC) | payer OTHER ==
[~2023-03-09] VITALS: Ht 182.9 cm; Wt 86.6 kg
[~2023-03-09 06:10] MED LIST changes: +GABA-282 PO
[2023-03-09] MEDS ORDERED: LR 1,000 ML IV SCH ×2 (06:30→09:15)
[2023-03-09] MEDS ORDERED: ceFAZolin SOD 2 GM in IV 1 EA IV ONE (06:30)
[2023-03-09] MEDS ORDERED: LIDOCAINE W/EPINEPHRINE 1% 20ML VIAL As Ordered ONE (06:45)
[2023-03-09] MEDS ORDERED: ROCURONIUM BROMIDE 50MG/5ML VIAL As Ordered ONE ×2 (07:37→08:21)
[2023-03-09] MEDS ORDERED: fentaNYL 250 MCG/5 ML INJECTION As Ordered ONE (07:37)
[2023-03-09] MEDS ORDERED: propofoL 200 MG/20 ML VIAL As Ordered ONE (07:37)
[2023-03-09] MEDS ORDERED: MIDAZOLAM INJ 2MG/2ML VIAL As Ordered ONE (07:37)
[2023-03-09] MEDS ORDERED: LIDOCAINE 2% 100MG/5ML SDV (FOR ANES.) As Ordered ONE (07:37)
[2023-03-09] MEDS ORDERED: ACETAMINOPHEN 1000MG 100ML IV BAG As Ordered ONE (08:09)
[2023-03-09] MEDS ORDERED: METOCLOPRAMIDE INJ 10MG/2ML VIAL As Ordered ONE (08:13)
[2023-03-09] MEDS ORDERED: KETOROLAC 60MG 2ML VIAL As Ordered ONE (08:13)
[2023-03-09] MEDS ORDERED: ONDANSETRON 4MG 2ML VIAL As Ordered ONE (08:13)
[2023-03-09] MEDS ORDERED: SUGAMMADEX SODIUM 500 MG/5 ML VIAL (BRIDION) As Ordered ONE (08:14)
[2023-03-09] MEDS ORDERED: HYDROmorphone HCL 2MG/ML 1ML VIAL As Ordered ONE (08:14)
[2023-03-09] MEDS ORDERED: fentaNYL 100 MCG/2 ML INJECTION IV PRN (09:15)
[2023-03-09] MEDS ORDERED: HYDROMORPHONE HCL 0.5 MG/ 0.5 ML SYRINGE IV PRN (09:15)
[2023-03-09] MEDS ORDERED: METOCLOPRAMIDE INJ 10MG/2ML VIAL IV PRN (09:15)
[2023-03-09] MEDS ORDERED: MEPERIDINE 25 MG/ML 1ML VIAL IV PRN (09:15)
[2023-03-09] MEDS ORDERED: ONDANSETRON 4MG 2ML VIAL IV PRN (09:15)
[2023-03-09] MEDS ORDERED: oxyCODONE 5MG TAB PO PRN (09:15)
[2023-03-09] MEDS ORDERED: traMADol 50 MG TAB PO PRN (10:20)
[2023-03-09] MEDS ORDERED: NS 1,000 ML IV SCH (11:00)
[2023-03-09 11:40] VITALS: BP 131/76; TEMP 97.8; O2SAT 95
== END 2023-03-09 11:50 | disposition home or self-care (01) ==
LOC: M SDC 06:10
PROVIDERS: ATTEND Surgery
DX: K43.2 Incisional hernia without obstruction or gangrene (principal); Z85.038 Personal history of other malignant neoplasm of large intestine; Z90.49 Acquired absence of other specified parts of digestive tract; Z87.19 Personal history of other diseases of the digestive system; Z92.21 Personal history of antineoplastic chemotherapy
CPT/HCPCS: 49593; C1765; C1781; C9290; J0131; J0665; J1100; J1170; J1885; J2250; J2405; J2765; J3010

== ENCOUNTER → 2023-06-01 | Outpatient (CLI) | payer OTHER ==
[~2023-06-01] MED LIST changes: +GASTROGRAFIN SOLUTION 30ML As Ordered ONE; +ISOVUE-370 76% 100ML VIAL As Ordered ONE
== END ==
LOC: M RAD 12:04
PROVIDERS: ATTEND Internal Medicine Hematology & Oncology
DX: C18.9 Malignant neoplasm of colon, unspecified (principal)

== ENCOUNTER 2023-06-27 15:24 | Emergency (ER) | payer OTHER ==
[~2023-06-27] VITALS: Ht 182.9 cm; Wt 87.9 kg
[~2023-06-27 15:24] MED LIST changes: -GASTROGRAFIN SOLUTION 30ML As Ordered ONE; -ISOVUE-370 76% 100ML VIAL As Ordered ONE
[2023-06-27 16:05] LABS: BASO % 0.2 % (0.0-1.0); EOS % 0.2 % (0.0-3.0); HEMATOCRIT 43.2 % (42.0-52.0); HEMOGLOBIN 14.4 g/dl (13.5-17.5); LYMPH # 1.1 10^3/uL (1.5-5.0); LYMPH % 11.6 % (24.0-44.0); MEAN CORPUSCULAR HEMOGLOBIN 30.8 pg (27.0-33.0); MEAN CORPUSCULAR HGB CONC 33.3 g/dl (32.0-36.5); MEAN CORPUSCULAR VOLUME 92.5 fl (80.0-96.0); MONO # 0.7 10^3/uL (0.0-0.8); MONO % 7.5 % (2.0-8.0); NEUTROPHILS # 7.6 10^3/uL (1.5-8.5); NEUTROPHILS % 80.2 % (36.0-66.0); PLATELET COUNT, AUTOMATED 339 10^3/uL (150-450); RED BLOOD COUNT 4.67 10^6/uL (4.30-6.10); WHITE BLOOD COUNT 9.5 10^3/uL (4.0-10.0)
[2023-06-27 16:37] LABS: ALBUMIN 2.9 G/DL (3.2-5.2); ALKALINE PHOSPHATASE 113 U/L (46-116); ALT/SGPT 58 U/L (7.0-40); AST/SGOT 29 U/L (<34); BILIRUBIN,DIRECT 0.3 MG/DL (<0.4); BILIRUBIN,TOTAL 0.7 MG/DL (0.3-1.2); BLOOD UREA NITROGEN 14 MG/DL (9-23); CALCIUM LEVEL 8.8 MG/DL (8.5-10.1); CARBON DIOXIDE LEVEL 28 MMOL/L (20-31); CHLORIDE LEVEL 101 MMOL/L (98-107); CREATININE FOR GFR 1.03 MG/DL (0.70-1.30); GLOMERULAR FILTRATION RATE > 60.0 (>56); GLUCOSE, FASTING 99 MG/DL (60-100); SODIUM LEVEL 138 MMOL/L (136-145); TOTAL PROTEIN 6.2 G/DL (5.7-8.2)
[2023-06-27] MEDS ORDERED: ISOVUE-370 76% 100ML VIAL As Ordered ONE (16:40)
[2023-06-27 16:45] LABS: LIPASE 43 U/L (12-53)
[2023-06-27] MEDS: NS 1,000 ML IV ONE (17:18)
[2023-06-27] MEDS: KETOROLAC 30 MG/ML 1ML VIAL IV ONE (17:18)
[2023-06-27] MEDS ORDERED: HYDR-3713 PO (17:49)
[2023-06-27 17:51] VITALS: BP 125/77; TEMP 99.7; O2SAT 97
[2023-06-27 18:03] LABS: MONO REFLEX EBV COMP NEGATIVE (NEGATIVE)
[2023-06-27 18:09] LABS: INR 1.3; PROTHROMBIN TIME 15.8 SECONDS (12.5-14.5)
[2023-06-27 18:36] LABS: HEPATITIS C VIRUS ABY INDEX < 0.02 INDEX (<0.8)
[2023-06-27 18:37] LABS: HEPATITIS B CORE ANTIBODY IGM NEGATIVE (NEGATIVE)
[2023-06-28] MEDS ORDERED: HYDR-3713 PO (12:22)
[2023-06-29 14:09] LABS: EBV AB TO NUCLEAR ANTIGEN 39.3 U/mL (0.0-17.9); EBV VIRAL CAPSID AG IgM <36.0 U/mL (0.0-35.9)
== END 2023-06-27 18:32 | disposition home or self-care (01) ==
LOC: M ED 15:24
DX: R18.8 Other ascites (principal); N20.0 Calculus of kidney; Z79.2 Long term (current) use of antibiotics
CPT/HCPCS: 71046; 74177; 80048; 80074; 80076; 81001; 83690; 83880; 85025; 85610; 86308; 86664; 86665; 87635; 93005; 96361; 96374; 99284; J1885; Q9967

== ENCOUNTER → 2023-07-02 | Outpatient (CLI) | payer OTHER ==
[2023-07-02 14:00] VITALS: TEMP 99.8
[2023-07-02 15:15] VITALS: BP 128/72; O2SAT 100
[2023-07-02 15:55] LABS: SOURCE, BODY FLUID ALBUMIN ASCITES
[2023-07-02 16:00] LABS: SOURCE, BODY FLUID GLUCOSE ASCITES
[2023-07-02 16:01] LABS: AMYLASE, BODY FLUID 21 U/L (NOT ESTABLISHED); SOURCE, BODY FLUID AMYLASE ASCITES
[2023-07-02 16:02] LABS: SOURCE, BODY FLUID TOT PROTEIN ASCITES; TOTAL PROTEIN, BODY FLUID 4.5 G/DL (NOT ESTABLISHED)
[2023-07-02 16:26] LABS: APPEARANCE, BODY FLUID CLOUDY (CLEAR); ASCITES FL COLOR YELLOW (COLORLESS); SOURCE, BODY FLUID ASCITES
[2023-07-02 22:17] LABS: LDH, BODY FLUID 297 U/L (NOT ESTABLISHED); SOURCE, BODY FLUID LDH ASCITES
== END ==
LOC: M IRPRO 13:30
PROVIDERS: ATTEND Internal Medicine Hematology & Oncology
DX: R18.8 Other ascites (principal); C18.9 Malignant neoplasm of colon, unspecified

== ENCOUNTER → 2023-08-02 | Outpatient (CLI) | payer OTHER ==
[~2023-08-02] MED LIST changes: +BACT800T5 PO
== END ==
LOC: M PLARAD 12:57
PROVIDERS: ATTEND Internal Medicine Hematology & Oncology
DX: C18.7 Malignant neoplasm of sigmoid colon (principal)
CPT/HCPCS: 78815; A9552

== ENCOUNTER → 2023-11-23 | Outpatient (CLI) | payer OTHER ==
[~2023-11-23] MED LIST changes: +NIRA200T PO; +OLAN1TAB20 PO; +ONDA-282 PO; +ONDA-84 PO; -ONDA4TAB6 PO
== END ==
LOC: M PLARAD 15:02
PROVIDERS: ATTEND Internal Medicine Hematology & Oncology
DX: C18.7 Malignant neoplasm of sigmoid colon (principal)
CPT/HCPCS: 78815; A9552

== ENCOUNTER 2024-03-13 09:59 | Emergency (ER) | payer OTHER ==
[~2024-03-13] VITALS: Ht 188 cm; Wt 90.2 kg
[~2024-03-13 09:59] MED LIST changes: +DEXA4TA PO; +GABA-1172 PO; -GABA-282 PO; +NOXI1TAB PO
[2024-03-13 10:01] VITALS: TEMP 98.1
[2024-03-13 11:15] LABS: BASO % 0.5 % (0.0-1.0); EOS % 0.5 % (0.0-3.0); HEMATOCRIT 43.4 % (42.0-52.0); HEMOGLOBIN 14.9 g/dl (13.5-17.5); LYMPH # 1.3 10^3/uL (1.5-5.0); LYMPH % 21.3 % (24.0-44.0); MEAN CORPUSCULAR HEMOGLOBIN 33.3 pg (27.0-33.0); MEAN CORPUSCULAR HGB CONC 34.3 g/dl (32.0-36.5); MEAN CORPUSCULAR VOLUME 97.1 fl (80.0-96.0); MONO # 0.4 10^3/uL (0.0-0.8); MONO % 6.1 % (2.0-8.0); NEUTROPHILS # 4.3 10^3/uL (1.5-8.5); NEUTROPHILS % 71.1 % (36.0-66.0); PLATELET COUNT, AUTOMATED 162 10^3/uL (150-450); RED BLOOD COUNT 4.47 10^6/uL (4.30-6.10); WHITE BLOOD COUNT 6.1 10^3/uL (4.0-10.0)
[2024-03-13 11:26] LABS: INR 0.96; PROTHROMBIN TIME 13.1 SECONDS (12.5-14.5)
[2024-03-13 11:36] LABS: ALBUMIN 3.4 G/DL (3.2-5.2); ALKALINE PHOSPHATASE 63 U/L (40-129); ALT/SGPT 33 U/L (7.0-40); AST/SGOT 22 U/L (<34); BILIRUBIN,TOTAL 0.3 MG/DL (0.3-1.2); BLOOD UREA NITROGEN 21 MG/DL (9-23); CALCIUM LEVEL 9.2 MG/DL (8.5-10.1); CARBON DIOXIDE LEVEL 24 MMOL/L (20-31); CHLORIDE LEVEL 106 MMOL/L (98-107); CREATININE FOR GFR 1.06 MG/DL (0.70-1.30); GLOMERULAR FILTRATION RATE > 60.0 (>56); GLUCOSE, FASTING 99 MG/DL (60-100); POTASSIUM SERUM 4.4 MMOL/L (3.5-5.1); SODIUM LEVEL 138 MMOL/L (136-145); TOTAL PROTEIN 6.7 G/DL (5.7-8.2)
[2024-03-13 13:30] VITALS: BP 132/87
[2024-03-13] MEDS ORDERED: MIRA3350 PO (13:38)
[2024-03-13 13:44] VITALS: O2SAT 97
== END 2024-03-13 14:00 | disposition home or self-care (01) ==
LOC: M ED 09:59
DX: K92.2 Gastrointestinal hemorrhage, unspecified (principal); Z79.899 Other long term (current) drug therapy

== ENCOUNTER → 2024-03-21 | Outpatient (CLI) | payer OTHER ==
[~2024-03-21] MED LIST changes: +MIRA3350 PO
== END ==
LOC: M PLARAD 07:39
PROVIDERS: ATTEND Internal Medicine Medical Oncology
DX: C18.7 Malignant neoplasm of sigmoid colon (principal)

== ENCOUNTER → 2024-05-26 | Outpatient (CLI) | payer OTHER ==
[~2024-05-26] MED LIST changes: +ONDA-284 PO; +PROC5TAB57 PO; +VITA1CAP25 PO
== END ==
LOC: M WHC 07:34
DX: C18.7 Malignant neoplasm of sigmoid colon (principal)

== ENCOUNTER 2024-06-08 06:49 | Day surgery (SDC) | payer OTHER ==
[~2024-06-08] VITALS: Ht 177.8 cm; Wt 90.5 kg
[2024-06-08] MEDS ORDERED: propofoL 200 MG/20 ML VIAL As Ordered ONE (07:30)
[2024-06-08] MEDS ORDERED: LIDOCAINE 2% 100MG/5ML SDV (FOR ANES.) As Ordered ONE (07:30)
[2024-06-08 08:10] VITALS: BP 138/85; O2SAT 96
[2024-06-22] MEDS ORDERED: OXYC-517 PO (10:11)
== END 2024-06-08 08:16 | disposition home or self-care (01) ==
LOC: M OPP 06:49
PROVIDERS: ATTEND Surgery
DX: K57.30 Diverticulosis of large intestine without perforation or abscess without bleeding (principal); Z98.0 Intestinal bypass and anastomosis status; Z85.038 Personal history of other malignant neoplasm of large intestine; Z79.899 Other long term (current) drug therapy; Z92.21 Personal history of antineoplastic chemotherapy; Z87.891 Personal history of nicotine dependence

== ENCOUNTER → 2024-07-10 | Outpatient (CLI) | payer OTHER ==
[~2024-07-10] MED LIST changes: +ISOVUE-370 76% 100ML VIAL ONE; +OXYC-517 PO
== END ==
LOC: M PLAIMG 09:59
DX: C18.9 Malignant neoplasm of colon, unspecified (principal)

== ENCOUNTER 2024-08-14 14:39 | Emergency (ER) | payer OTHER ==
[~2024-08-14] VITALS: Ht 182.9 cm; Wt 93.7 kg
[~2024-08-14 14:39] MED LIST changes: -ISOVUE-370 76% 100ML VIAL ONE
[2024-08-14] MEDS ORDERED: BENZ5LIQ14 (14:47)
[2024-08-14] MEDS: MAGIC MOUTHWASH 5ML ORAL SYRINGE SS ONE (17:30)
[2024-08-14] MEDS ORDERED: MAGICMW SSP (18:05)
[2024-08-14 18:10] VITALS: BP 140/81; TEMP 99; O2SAT 96
== END 2024-08-14 18:15 | disposition home or self-care (01) ==
LOC: M ED 14:39
DX: J02.9 Acute pharyngitis, unspecified (principal); Z79.899 Other long term (current) drug therapy

== ENCOUNTER → 2024-10-27 | Outpatient (CLI) | payer OTHER ==
[~2024-10-27] MED LIST changes: +AUGM500T34 PO; +BENZ5LIQ14; +GADOXETATE DISODIUM 2.5 MMOL/10 ML VIAL As Ordered ONE; +MAGICMW SSP
== END ==
LOC: M RAD 16:26
PROVIDERS: ATTEND Family Medicine
DX: C18.7 Malignant neoplasm of sigmoid colon (principal); C78.7 Secondary malignant neoplasm of liver and intrahepatic bile duct; R16.1 Splenomegaly, not elsewhere classified; J90 Pleural effusion, not elsewhere classified; N28.1 Cyst of kidney, acquired; K82.8 Other specified diseases of gallbladder
CPT/HCPCS: 74183; A9581

== ENCOUNTER → 2024-10-30 | Outpatient (CLI) | payer OTHER ==
[~2024-10-30] MED LIST changes: -GADOXETATE DISODIUM 2.5 MMOL/10 ML VIAL As Ordered ONE
== END ==
LOC: M PLARAD 14:15
PROVIDERS: ATTEND Internal Medicine Medical Oncology
DX: C18.7 Malignant neoplasm of sigmoid colon (principal)
CPT/HCPCS: 78815; A9552

== ENCOUNTER → 2024-11-28 | Outpatient (REF) | LOC: M PLAIMG 12:59 | PROVIDERS: ATTEND Internal Medicine | DX: M25.571 Pain in right ankle and joints of right foot (principal) ==

== ENCOUNTER → 2025-01-19 | Outpatient (CLI) | payer OTHER ==
[~2025-01-19] MED LIST changes: +LIDOCAINE 1% MDV 20 ML VIAL As Ordered ONE; +LIDOCAINE 1% MDV 20 ML VIAL SC STA
[2025-01-19 08:24] VITALS: TEMP 98.2
[2025-01-19] MEDS: LIDOCAINE 1% MDV 20 ML VIAL SC ONE (09:12)
[2025-01-19 10:45] VITALS: BP 130/81; O2SAT 97
== END ==
LOC: M IRPRO 07:53
PROVIDERS: ATTEND Internal Medicine Medical Oncology
DX: C78.7 Secondary malignant neoplasm of liver and intrahepatic bile duct (principal); K76.89 Other specified diseases of liver; C18.9 Malignant neoplasm of colon, unspecified

== ENCOUNTER 2025-02-19 10:30 | Inpatient (IN) | payer OTHER ==
[~2025-02-19] VITALS: Ht 177.8 cm; Wt 88.7 kg
[~2025-02-19 10:30] MED LIST changes: -LIDOCAINE 1% MDV 20 ML VIAL As Ordered ONE; -LIDOCAINE 1% MDV 20 ML VIAL SC STA; -PROC5TAB57 PO; +PROC5TAB81 PO
[2025-02-19 12:05] LABS: BASO # 0.0 10^3/uL (0.0-0.2); BASO % 1.0 % (0.0-1.0); EOS # 0.0 10^3/uL (0.0-0.5); EOS % 2.1 % (0.0-3.0); LYMPH # 0.4 10^3/uL (1.5-5.0); LYMPH % 37.5 % (24.0-44.0); MONO # 0.3 10^3/uL (0.0-0.8); MONO % 30.2 % (2.0-8.0); NEUTROPHILS % 29.2 % (36.0-66.0); PLATELET COUNT, AUTOMATED 122 10^3/uL (150-450)
[2025-02-19 12:07] LABS: NEUTROPHILS # 0.3 10^3/uL (1.5-8.5)
[2025-02-19 12:30] LABS: ALT/SGPT 40.0 U/L (7.0-40); AST/SGOT 27.0 U/L (<34); CALCIUM LEVEL 8.7 MG/DL (8.5-10.1); CARBON DIOXIDE LEVEL 28.0 MMOL/L (20-31); CHLORIDE LEVEL 99.0 MMOL/L (98-107); CREATININE FOR GFR 1.19 MG/DL (0.70-1.30); GLOMERULAR FILTRATION RATE 73.0 (>56); POTASSIUM SERUM 4.5 MMOL/L (3.5-5.1); SODIUM LEVEL 136.0 MMOL/L (136-145)
[2025-02-19] MEDS ORDERED: ISOVUE-370 76% 100 ML VIAL As Ordered ONE (12:36)
[2025-02-19] MEDS: ACETAMINOPHEN 325 MG TAB PO ONE (14:09)
[2025-02-19] MEDS ORDERED: HOME MED LIST COMPLETE! XX SCH (14:50)
[2025-02-19 15:33] LABS: KETONE, URINE AUTO RFX TRACE mg/dL (NEGATIVE); LEUKOCYTE ESTERASE UR AUTO RFX NEGATIVE (NEGATIVE); MUCUS, URINE RFX SMALL (NEGATIVE); NITRITE, URINE AUTO RFX NEGATIVE (NEGATIVE); RBC, URINE AUTO RFX 2 /HPF (0-3); SQUAM EPITHELIAL CELL UR AURFX 0 /HPF (0-6); WBC, URINE AUTO RFX 1 /HPF (0-3)
[2025-02-19] MEDS ORDERED: ONDANSETRON 4MG ORAL DISINTEGRATING TAB PO PRN (15:55)
[2025-02-19] MEDS ORDERED: PROCHLORPERAZINE 5MG TAB PO PRN (15:55)
[2025-02-19] MEDS ORDERED: ACETAMINOPHEN 325 MG TAB PO PRN (15:55)
[2025-02-19] MEDS ORDERED: NYSTATIN 500,000 UNITS/5 ML SUSP UDC PO SCH (17:00)
[2025-02-19 17:24] LABS: INR 1.03
[2025-02-19] MEDS: MAGIC MOUTHWASH 5 ML ORAL SYRINGE SSP SCH (17:30)
[2025-02-19] MEDS: PIPERACILLIN/TAZOBACTAM SOD 3.375 GM in DEXTROSE 5% (D5W) ADV/MINI-BAG 50 ML IV SCH (18:10)
[2025-02-19] MEDS: FILGRASTIM 480 MCG/0.8 ML SYRINGE **SC ADMINISTRATION ONLY SC SCH (18:11)
[2025-02-19 20:00] VITALS: BP 153/87; TEMP 98.3; O2SAT 94
[2025-02-19] MEDS: VITAMIN D 1,000 INTERNATIONAL UNITS TABLET PO SCH (21:26)
[2025-02-20 04:00] VITALS: BP 130/83; TEMP 97.3; O2SAT 96
[2025-02-20 06:59] LABS: PLATELET COUNT, AUTOMATED 147 10^3/uL (150-450)
[2025-02-20 07:17] LABS: ALT/SGPT 42.0 U/L (7.0-40); AST/SGOT 27.0 U/L (<34); CALCIUM LEVEL 8.8 MG/DL (8.5-10.1); CARBON DIOXIDE LEVEL 26.0 MMOL/L (20-31); CHLORIDE LEVEL 102.0 MMOL/L (98-107); CREATININE FOR GFR 1.14 MG/DL (0.70-1.30); GLOMERULAR FILTRATION RATE 76.9 (>56); POTASSIUM SERUM 4.8 MMOL/L (3.5-5.1); SODIUM LEVEL 137.0 MMOL/L (136-145)
[2025-02-20 07:52] LABS: LYMPHOCYTES 9 % (16-44); MONOCYTES 16 % (0-5); NEUTROPHILS 50 % (28-66)
[2025-02-20 07:53] LABS: DOHLE BODIES 1+; PLATELET ESTIMATE NORMAL (NORMAL)
[2025-02-20] MEDS: PANTOPRAZOLE 40MG TAB PO SCH (08:45)
[2025-02-20] MEDS: ENOXAPARIN 40 MG/0.4 ML SYRINGE (J1650 PER 10MG) SC SCH (08:46)
[2025-02-20 12:00] VITALS: BP 123/77; TEMP 98.1; O2SAT 96
[2025-02-20] MEDS: SODIUM CHLORIDE 0.9% INJ 10 ML SYR IV SCH (12:24)
[2025-02-20] MEDS: HEPARIN LOCK FLUSH 100 UNITS/ML 3 ML SYRINGE IV ONE (12:24)
[2025-02-20 20:27] VITALS: BP 123/74; TEMP 98; O2SAT 97
[2025-02-21 03:56] VITALS: BP 126/79; TEMP 97.8; O2SAT 94
[2025-02-21 06:24] LABS: BASO # 0.1 10^3/uL (0.0-0.2); BASO % 0.6 % (0.0-1.0); EOS # 0.0 10^3/uL (0.0-0.5); EOS % 0.0 % (0.0-3.0); LYMPH # 0.7 10^3/uL (1.5-5.0); LYMPH % 7.0 % (24.0-44.0); MONO # 1.3 10^3/uL (0.0-0.8); MONO % 13.8 % (2.0-8.0); NEUTROPHILS # 6.5 10^3/uL (1.5-8.5); NEUTROPHILS % 69.9 % (36.0-66.0); PLATELET COUNT, AUTOMATED 145 10^3/uL (150-450)
[2025-02-21 06:53] LABS: ALT/SGPT 39.0 U/L (7.0-40); AST/SGOT 20.0 U/L (<34); CALCIUM LEVEL 8.6 MG/DL (8.5-10.1); CARBON DIOXIDE LEVEL 24.0 MMOL/L (20-31); CHLORIDE LEVEL 106.0 MMOL/L (98-107); CREATININE FOR GFR 1.1 MG/DL (0.70-1.30); GLOMERULAR FILTRATION RATE 80.3 (>56); POTASSIUM SERUM 4.5 MMOL/L (3.5-5.1); SODIUM LEVEL 140.0 MMOL/L (136-145)
[2025-02-21] MEDS ORDERED: MAGICMW SSP (08:54)
[2025-02-21] MEDS ORDERED: LEVO1TAB40 PO (08:54)
[2025-02-21] MEDS ORDERED: VALA500T5 PO (08:54)
[2025-02-21] MEDS: PNEUMOC 21-VAL CONJ-DIP CRM/PF 0.5 ML SYRINGE IM.IMMUN ONE (11:20)
[2025-02-21] MEDS: FLUZONE VACCINE TRI PF(25-26) 0.5ML SYRINGE IM.IMMUN ONE (11:22)
== END 2025-02-21 11:30 | disposition home or self-care (01) | DRG 872 ==
LOC: M ED 10:30 → M ED INP 15:51 → M MSPAV 19:49
PROVIDERS: ADMIT Internal Medicine; ATTEND Internal Medicine Nephrology
DX: A41.9 Sepsis, unspecified organism (principal); C78.6 Secondary malignant neoplasm of retroperitoneum and peritoneum; C18.9 Malignant neoplasm of colon, unspecified; B37.81 Candidal esophagitis; B00.89 Other herpesviral infection; D70.9 Neutropenia, unspecified; K12.39 Other oral mucositis (ulcerative); E55.9 Vitamin D deficiency, unspecified; R13.10 Dysphagia, unspecified; K13.79 Other lesions of oral mucosa; Z90.49 Acquired absence of other specified parts of digestive tract; Z79.69 Long term (current) use of other immunomodulators and immunosuppressants; Z79.899 Other long term (current) drug therapy

== ENCOUNTER → 2025-02-26 | Outpatient (CLI) | payer OTHER ==
[~2025-02-26] MED LIST changes: +LEVO1TAB40 PO; +MORP20SO PO; +TRAZ-252 PO; +VALA500T5 PO
== END ==
LOC: M PAL 13:29
PROVIDERS: ATTEND Physician Assistant
DX: Z51.5 Encounter for palliative care (principal); C18.9 Malignant neoplasm of colon, unspecified; C78.6 Secondary malignant neoplasm of retroperitoneum and peritoneum; C78.7 Secondary malignant neoplasm of liver and intrahepatic bile duct; Z79.891 Long term (current) use of opiate analgesic; M54.59 Other low back pain; Z79.899 Other long term (current) drug therapy

== ENCOUNTER → 2025-02-27 | Outpatient (CLI) | payer OTHER | LOC: M RAD 09:14 | PROVIDERS: ATTEND Internal Medicine Medical Oncology | DX: M54.50 Low back pain, unspecified (principal) ==

== ENCOUNTER → 2025-03-06 | Outpatient (CLI) | payer OTHER | LOC: M PLARAD 10:40 | PROVIDERS: ATTEND Internal Medicine Medical Oncology | DX: C18.9 Malignant neoplasm of colon, unspecified (principal) | CPT/HCPCS: 78815; A9552 ==

== ENCOUNTER → 2025-03-07 | Outpatient (CLI) | payer OTHER ==
[~2025-03-07] MED LIST changes: +PROHANCE 279.3MG/ML 15ML VIAL ONE; +PROHANCE 279.3MG/ML 5ML VIAL ONE
== END ==
LOC: M PLAIMG 08:36
PROVIDERS: ATTEND Internal Medicine Medical Oncology
DX: C18.9 Malignant neoplasm of colon, unspecified (principal); M47.816 Spondylosis without myelopathy or radiculopathy, lumbar region; M99.63 Osseous and subluxation stenosis of intervertebral foramina of lumbar region; M51.26 Other intervertebral disc displacement, lumbar region
CPT/HCPCS: 72158; A9579

== ENCOUNTER → 2025-03-19 | Outpatient (CLI) | payer OTHER ==
[~2025-03-19] VITALS: Ht 182.9 cm; Wt 85.5 kg
[~2025-03-19] MED LIST changes: -PROHANCE 279.3MG/ML 15ML VIAL ONE; -PROHANCE 279.3MG/ML 5ML VIAL ONE
[2025-03-19 13:56] VITALS: BP 120/72; O2SAT 97
== END ==
LOC: M PAL 13:36
PROVIDERS: ATTEND Physician Assistant
DX: Z51.5 Encounter for palliative care (principal); Z66 Do not resuscitate; C18.9 Malignant neoplasm of colon, unspecified; C78.7 Secondary malignant neoplasm of liver and intrahepatic bile duct; C78.6 Secondary malignant neoplasm of retroperitoneum and peritoneum; Z79.891 Long term (current) use of opiate analgesic; Z79.899 Other long term (current) drug therapy